=== PATIENT | female | born 1950 | race Caucasian/White ===

== ENCOUNTER → 2017-11-15 | Outpatient (CLI) | payer MEDICARE ==
[~2017-11-15] MED LIST: ALBU90OI61; AMIT50 PO; ASCO500 PO; DULO60; Ferrous Sulfat325 M2 GT; HYDMETSO BOTHEYES; Icaps Areds Fo1 EACH PO; LOSHYD100 PO; METF500 PO; METO25ER PO; MOTION RELIEF25 MG; NAPR500 PO; Omeprazole20 M1; TRAM50 PO; VITAMIN D35000 UNI1 PO; Vitamin B Comple1 EA PO; ZYRTEC10 M2 PO
[2017-11-15 18:14] LABS: BASOPHILS ABSOLUTE AUTO 0.02 K/mm3 (0.00-0.23); BASOPHILS PERCENT AUTO 0 % (0-2); EOSINOPHILS ABSOLUTE AUTO 0.12 K/mm3 (0.00-0.68); EOSINOPHILS PERCENT AUTO 2 % (0-6); Hematocrit 39.7 % (33.0-51.0); Hemoglobin 13.5 g/dL (11.5-16.0); IMMATURE GRAN ABSOLUTE AUTO 0.01 K/mm3 (0.00-0.10); IMMATURE GRAN PERCENT AUTO 0 % (0-1); LYMPHOCYTES ABSOLUTE AUTO 2.32 K/mm3 (0.84-5.20); LYMPHOCYTES PERCENT AUTO 35 % (21-46); MONOCYTES ABSOLUTE AUTO 0.69 K/mm3 (0.16-1.47); MONOCYTES PERCENT AUTO 11 % (4-13); Mean Corpuscular HGB 30.6 pg (26.0-34.0); Mean Corpuscular Volume 90 fL (80-100); Mean Platelet Volume 10.3 fL (9.1-12.4); NEUTROPHILS ABSOLUTE AUTO 3.43 K/mm3 (1.96-9.15); NEUTROPHILS PERCENT AUTO 52 % (41-73); Platelet Count 338 K/mm3 (150-400); RDW Coefficient Variation 12.7 % (11.7-14.2); RDW Standard Deviation 41.9 fL (35.1-46.3); Red Blood Cell Count 4.41 M/mm3 (3.80-5.20); White Blood Cell Count 6.59 K/mm3 (4.00-11.30)
[2017-11-15 19:11] LABS: Alanine Aminotransfer (ALT/SGP 99 U/L (12-78); Albumin, Blood 4.2 g/dL (3.4-5.0); Albumin/Globulin Ratio 1.2 (0.8-1.8); Alk Phos 118 U/L (50-136); Anion Gap 8 mmol/L (6-16); Aspartate Aminotrans (AST/SGOT 46 U/L (12-37); Bilirubin, Total 0.3 mg/dL (0.1-1.0); Blood Urea Nitrogen 18 mg/dL (8-24); Bun/Creatinine Ratio 30.7 (12.0-20.0); CO2, Blood 27 mmol/L (21-32); Calcium, Blood 9.2 mg/dL (8.5-10.1); Chloride, Blood 105 mmol/L (98-108); Creatinine, Blood 0.59 mg/dL (0.40-1.00); Globulin, Blood 3.6 g/dL (2.2-4.0); Glomerular Filtration Rate >60 (60-); Glucose, Blood 109 mg/dL (70-99); Potassium, Blood 3.8 mmol/L (3.5-5.5); Sodium, Blood 140 mmol/L (136-145); Total Protein, Blood 7.8 g/dL (6.4-8.2)
[2017-11-15 19:14] LABS: Percent Saturation 22.2 % (15.0-50.0)
== END ==
LOC: LAB 17:52 → LAB SHORT 17:52
PROVIDERS: Nurse Practitioner Adult Health
DX: E11.9 Type 2 diabetes mellitus without complications (principal); D50.9 Iron deficiency anemia, unspecified; F32.9 Major depressive disorder, single episode, unspecified; I10 Essential (primary) hypertension; J45.909 Unspecified asthma, uncomplicated; Z68.44 Body mass index [BMI] 60.0-69.9, adult
CPT/HCPCS: 80053; 82043; 82728; 83540; 83550; 85025

== ENCOUNTER 2020-03-08 06:17 | Day surgery (SDC) | payer MEDICARE ==
[~2020-03-08] VITALS: Ht 167.6 cm; Wt 111.9 kg
[~2020-03-08 06:17] MED LIST changes: +ACETAMINOPHEN500 MG; +CYCL10 PO; +DULO60 PO; +LOSARTAN-HCTZ1 EAC5 PO; +Lopressor 25 mg25 MG PO; +MECL25; +METF500C PO; +OMEP20ER; +Ocuvite Preser1 EACH PO; +PROAIR RESPICL90 MCG INH; +Ranitidine HCl150 M1 PO; +VITAMIN B125000 MC1 PO; +VITAMIN D325 MC3 PO; +Voltaren100 GM
[2020-03-08] MEDS ORDERED: ATOR20 PO (07:17)
--- NOTE | 2020-03-08 07:43 | NUR ---
03/08/20 0742 Kellie Abad COMPLET[address] DR[address] RIOS PRIOR TO SURGERY START.
--- NOTE | 2020-03-09 11:03 | NUR ---
03/09/20 1103 CHRISSIE PORTER PT NOT GIVEN SLING. PT STATED HE HAD ONE AT HOME.
== END 2020-03-08 08:37 | disposition home or self-care (01) ==
LOC: ORSCSDS 06:17
PROVIDERS: Orthopaedic Surgery
PROC: 01N50ZZ Release Median Nerve, Open Approach (ICD-10-PCS; principal; 2020-03-08 07:30)
PROC: 0LN80ZZ Release Left Hand Tendon, Open Approach (ICD-10-PCS; principal; 2020-03-08 07:30)
DX: G56.02 Carpal tunnel syndrome, left upper limb (principal); M65.332 Trigger finger, left middle finger; I10 Essential (primary) hypertension; I25.10 Atherosclerotic heart disease of native coronary artery without angina pectoris; E78.5 Hyperlipidemia, unspecified; J44.9 Chronic obstructive pulmonary disease, unspecified; G47.33 Obstructive sleep apnea (adult) (pediatric); E11.9 Type 2 diabetes mellitus without complications; E66.01 Morbid (severe) obesity due to excess calories; Z68.41 Body mass index [BMI] 40.0-44.9, adult; Z87.891 Personal history of nicotine dependence; Z79.84 Long term (current) use of oral hypoglycemic drugs; Z79.899 Other long term (current) drug therapy; Z79.82 Long term (current) use of aspirin
CPT/HCPCS: 82947; J0690; J1100; J1885; J2250; J3010; J7120

== ENCOUNTER 2020-09-16 06:15 | Day surgery (SDC) | payer MEDICARE ==
[~2020-09-16] VITALS: Ht 167.6 cm; Wt 115.3 kg
[~2020-09-16 06:15] MED LIST changes: +ATOR20 PO; +Aspirin EC81 MG PO; +MECL25 PO
--- NOTE | 2020-09-16 06:42 | NUR ---
09/16/20 0642 Yareli Sparks TETRACAINE DROP PLACED AT [address] ORDERS. PLEDGET PLACED AT [address] ORDERS.
== END 2020-09-16 08:09 | disposition home or self-care (01) ==
LOC: ORSCSDS 06:15
PROVIDERS: Ophthalmology
PROC: 08RJ3JZ Replacement of Right Lens with Synthetic Substitute, Percutaneous Approach (ICD-10-PCS; principal; 2020-09-16 07:30)
DX: H25.11 Age-related nuclear cataract, right eye (principal); I10 Essential (primary) hypertension; E11.9 Type 2 diabetes mellitus without complications; Z87.891 Personal history of nicotine dependence; E66.01 Morbid (severe) obesity due to excess calories; Z68.41 Body mass index [BMI] 40.0-44.9, adult; Z79.84 Long term (current) use of oral hypoglycemic drugs; Z79.899 Other long term (current) drug therapy; Z79.82 Long term (current) use of aspirin
CPT/HCPCS: 82947; J2001; J2250; J3010; J3301; J7040; V2632

== ENCOUNTER 2022-07-25 05:52 | Day surgery (SDC) | payer MEDICARE ==
[2022-07-25] VITALS (15 sets, daily range): BP systolic 118–171; BP diastolic 55–75
[~2022-07-25] VITALS: Ht 167.6 cm; Wt 114.9 kg
[~2022-07-25 05:52] MED LIST changes: -ACETAMINOPHEN500 MG; +ACETAMINOPHEN500 MG PO; +ESCI10 PO; +GLIP5 PO; +HYDCHL25 PO; +HYDRA25 PO; +LOSA50 PO; +LYRICA PO; -OMEP20ER; +OMEP20ER PO
--- NOTE | 2022-07-25 06:51 | NUR ---
History, Chart, Medications and Allergies reviewed before start of procedure. Patient confirms NPO status and agrees with scheduled surgery. Knee high azalia hose and calf PAS applied to BLE per order.
--- NOTE | 2022-07-25 18:15 | NUR ---
Pt. is resting in her recliner but responds whe I enter the room. Pt. is pleasant and I facilitated a life review. Considered matters of laxmi and belief, and rapport was established. Pt. displayed a wonderful sense of humor. Pt. display evidence of engagement and focus. Prayed with Pt. Pt. verbalized gratitude for the spiritual care visit.
--- NOTE | 2022-07-25 18:38 | NUR ---
SHIFT SUMMARY PT HAS DONE WELL POST OP. INITIALLY STRUGGLED w/ PAIN BUT FEELS BETTER THIS AFTERNOON. EATING, DRINKING, VOIDING WELL.
[2022-07-26 00:06] VITALS: BP 151/66
[2022-07-26 04:23] VITALS: BP 139/58
[2022-07-26 04:23] LABS: Hematocrit 28.3 % (33.0-51.0); Mean Corpuscular HGB 27.3 pg (26.0-34.0); Mean Corpuscular HGB Conc 31.8 g/dL (31.5-36.5); Mean Corpuscular Volume 86 fL (80-100); Platelet Count 276 K/mm3 (150-400); RDW Coefficient Variation 14.6 % (11.7-14.2); RDW Standard Deviation 45.4 fL (35.1-46.3); White Blood Cell Count 10.05 K/mm3 (4.00-11.30)
--- NOTE | 2022-07-26 04:34 | NUR ---
SHIFT SUMMARY POD1 LEFT TOTAL HIP. DRESSING IS C/D/I, SENSATION AND CIRCULATION REMAINS INTACT. VSS. PT SLEPT WELL T/O THE NIGHT. PAIN CONTROLLED WITH OXY AND SCHEDULED. VOIDING W/O DIFFICULTY, TOLLERATING PO INTAKE. PLAN FOR PT WORK WITH THERAPY AND D/C HOME. THE PATIENT IS CURRENTLY SLEEPING, IN NO DISTRESS, CALL LIGHT IN REACH.
[2022-07-26 04:40] LABS: Calcium, Blood 8.9 mg/dL (8.5-10.1); Creatinine, Blood 0.57 mg/dL (0.40-1.00); Potassium, Blood 3.6 mmol/L (3.5-5.5)
[2022-07-26 05:22] LABS: BAND PERCENT MAN 2 % (0-8); BASOPHILS PERCENT MAN 0 % (0-2); EOSINOPHILS PERCENT MAN 2 % (0-6); LYMPHOCYTES % ATYPICAL MANUAL 3 % (0-0); LYMPHOCYTES ABSOLUTE MAN 2.61 K/mm3 (0.84-5.20); LYMPHOCYTES PERCENT MAN 23 % (21-46); MONOCYTES PERCENT MAN 3 % (4-13); MYELOCYTE PERCENT MAN 1 % (0-0); NEUTROPHILS ABSOLUTE MAN 6.83 K/mm3 (1.96-9.15); SEG NEUTROPHILS PERCENT MAN 66 % (41-73); TOTAL CELLS COUNTED 100
[2022-07-26 06:59] VITALS: BP 139/51
[2022-07-26] MEDS ORDERED: ASPI81CH PO (09:02)
[2022-07-26] MEDS ORDERED: Percocet 5-3251 EACH PO (09:03)
--- NOTE | 2022-07-26 09:28 | NUR ---
DISCHARGE NOTE: PATIENT WAS EDUCATED ON DISCHARGE INSTRUCTIONS. SHE VERBALIZED UNDERSTANDING OF INSTRUCTIONS AND HAD NO FURTHER QUESTIONS AT THIS TIME. HARD PERSCRIPTIONS WERE PLACED IN INSTRUCTIONS FOLDER. PAIN IS MANAGED WITH ORAL PAIN MEDICATIONS. HER LEFT HIP HAS AN AQUACEL THAT IS C/D/I. DENIES NUMBNESS OR TINGLING AND CAN MOVE ALL EXTREMITIES. SHE IS TOLERATING PO INTAKE AND IS VOIDING. SHE IS SITTING UP IN THE RECLINER CHAIR WITH CALL LIGHT IN REACH. SHE IS CALLING HER RIDE TO COME PICK HER UP AT THIS TIME.
--- NOTE | 2022-07-26 10:19 | NUR ---
PATIENT IS BEING WHEELCHAIRED DOWN TO HER RIDE TO TAKE HER HOME. PATIENT IS DRESSED AND HAS PERSONAL ITEMS IN THE ROOM GATHERED.
== END 2022-07-26 10:29 | disposition home or self-care (01) ==
LOC: ORSCMMR 05:52 → ORD 07:30 → ORSCMMR 07:30 → ORD 09:15 → ORSCMMR 09:15 → SURS 10:16 → ORSCMMR 07-26 10:29
PROVIDERS: Orthopaedic Surgery
PROC: 0SRB0JZ Replacement of Left Hip Joint with Synthetic Substitute, Open Approach (ICD-10-PCS; principal; 2022-07-25 07:30)
DX: M16.12 Unilateral primary osteoarthritis, left hip (principal); E11.9 Type 2 diabetes mellitus without complications; I10 Essential (primary) hypertension; E78.5 Hyperlipidemia, unspecified; Z79.84 Long term (current) use of oral hypoglycemic drugs; Z79.4 Long term (current) use of insulin; Z79.899 Other long term (current) drug therapy; E66.01 Morbid (severe) obesity due to excess calories; Z68.41 Body mass index [BMI] 40.0-44.9, adult
CPT/HCPCS: 27130; 0055T; 36415; 72170; 80048; 82947; 85025; 97110; 97116; 97162; A9270; C1776; J0171; J0690; J0735; J1100; J1170; J1815; J1885; J2250; J2405; J2704; J2795; J3010; J7120

== ENCOUNTER → 2023-03-12 | Outpatient (CLI) | payer MEDICARE ==
[~2023-03-12] MED LIST changes: +ASPI81CH PO; +Percocet 5-3251 EACH PO
[2023-03-12 19:31] LABS: BASOPHILS ABSOLUTE AUTO 0.04 K/mm3 (0.00-0.23); BASOPHILS PERCENT AUTO 1 % (0-2); EOSINOPHILS ABSOLUTE AUTO 0.28 K/mm3 (0.00-0.68); EOSINOPHILS PERCENT AUTO 4 % (0-6); Hematocrit 37.4 % (33.0-51.0); Hemoglobin 11.7 g/dL (11.5-16.0); IMMATURE GRAN ABSOLUTE AUTO 0.01 K/mm3 (0.00-0.10); IMMATURE GRAN PERCENT AUTO 0 % (0-1); LYMPHOCYTES ABSOLUTE AUTO 2.51 K/mm3 (0.84-5.20); LYMPHOCYTES PERCENT AUTO 36 % (21-46); MONOCYTES ABSOLUTE AUTO 0.59 K/mm3 (0.16-1.47); MONOCYTES PERCENT AUTO 9 % (4-13); Mean Corpuscular HGB 24.9 pg (26.0-34.0); Mean Corpuscular HGB Conc 31.3 g/dL (31.5-36.5); Mean Corpuscular Volume 80 fL (80-100); Mean Platelet Volume 10.4 fL (9.1-12.4); NEUTROPHILS ABSOLUTE AUTO 3.48 K/mm3 (1.96-9.15); NEUTROPHILS PERCENT AUTO 50 % (41-73); Platelet Count 359 K/mm3 (150-400); RDW Coefficient Variation 18.1 % (11.7-14.2); RDW Standard Deviation 52.6 fL (35.1-46.3); Red Blood Cell Count 4.69 M/mm3 (3.80-5.20); White Blood Cell Count 6.91 K/mm3 (4.00-11.30)
[2023-03-12 20:47] LABS: Bun/Creatinine Ratio 28.8 (12.0-20.0); Calcium, Blood 9.1 mg/dL (8.5-10.1); Creatinine, Blood 0.56 mg/dL (0.40-1.00); Potassium, Blood 3.5 mmol/L (3.5-5.5)
[2023-03-16 08:12] LABS: HEMOGLOBIN A1C 6.8 % (4.8-5.6)
== END ==
LOC: LAB 18:51 → LAB SHORT 18:51
PROVIDERS: Nurse Practitioner Family
DX: E11.40 Type 2 diabetes mellitus with diabetic neuropathy, unspecified (principal); D64.9 Anemia, unspecified
CPT/HCPCS: 80048; 83036; 85025

== ENCOUNTER → 2023-12-13 | Outpatient (CLI) | payer MEDICARE ==
[2023-12-13 17:58] LABS: Creatinine, Urine Random 35.2 mg/dL (27.00-270.00)
[2023-12-13 18:01] LABS: Microalb/Creat Ratio UR, Rand 45.454 mg/g (0.000-30.000)
== END ==
LOC: LAB 15:45 → LAB SHORT 15:45
PROVIDERS: Nurse Practitioner Family
DX: E11.40 Type 2 diabetes mellitus with diabetic neuropathy, unspecified (principal)
CPT/HCPCS: 82043; 82570

== ENCOUNTER 2024-02-19 11:17 | Day surgery (SDC) | payer MEDICARE ==
[~2024-02-19] VITALS: Ht 167.6 cm; Wt 109.5 kg
[2024-02-19] VITALS (10 sets, daily range): BP systolic 112–185; BP diastolic 46–86
[~2024-02-19 11:17] MED LIST changes: +Acetaminophen 500 MG Tab PO SCH; +CeFAZolin Sodium 2,000 MG in NS 100 ML IV SCH; +Chlorhexidine Mouth Care 15 ML UDC MT SCH; +JARDIANCE10 MG PO; +Lactated Ringer's 1,000 ML IV SCH; +OxyCODONE HCL 10 MG TABCR PO SCH; +Ropivacaine 0.5% HCl/Pf 123.125 MG,EPINEPHrine HCL 0.25 MG,Ketorolac Tromethamine 15 MG... INFIL SCH; +Tranexamic Acid 1,000 MG in NS 100 ML IV SCH
[2024-02-19] MEDS ORDERED: Ondansetron HCl 2 MG / ML 2ML Vial IV PRN (12:30)
[2024-02-19] MEDS ORDERED: Bisacodyl 10 MG Supp PR PRN (12:30)
[2024-02-19] MEDS ORDERED: Promethazine HCl 25 MG Tab PO PRN (12:30)
[2024-02-19] MEDS ORDERED: OxyCODONE HCL 5 MG TAB PO PRN ×2 (12:35)
[2024-02-19] MEDS ORDERED: HYDROmorphone HCl/Pf 1MG SYR IV PRN (12:35)
[2024-02-19] MEDS ORDERED: Metoclopramide HCl 5MG / ML 2ML Vial IV PRN (12:35)
[2024-02-19] MEDS ORDERED: Magnesium Hydroxide Conc 10 ML UDC PO PRN (12:35)
[2024-02-19] MEDS ORDERED: FLU VACC TS2024-25(6MOS UP)/PF 45 MCG/0.5 ML SYRINGE IM SCH (12:35)
[2024-02-19] MEDS ORDERED: DiphenhydrAMINE HCL 25 MG Cap PO PRN (12:40)
[2024-02-19] MEDS ORDERED: Lactated Ringer's 1,000 ML IV SCH (12:40)
--- NOTE | 2024-02-19 12:46 | NUR ---
History, Chart, Medications and Allergies reviewed before start of procedure. Lungs clear T/O to Auscultation. Patient confirms NPO status and agrees with scheduled surgery. Patient reports completing Chlorhexadine shower X2 prior to admission to hospital.
[2024-02-19] MEDS ORDERED: propofoL 100 ML IV ONE (14:27)
[2024-02-19] MEDS ORDERED: Phenylephrine HCl 10mg/ml 1 ml Vial ONE (15:33)
[2024-02-19] MEDS ORDERED: Midazolam HCl 1MG / ML 2ML Vial ONE (15:33)
[2024-02-19] MEDS ORDERED: propofoL 20 ML IV ONE (15:56)
[2024-02-19] MEDS ORDERED: Acetaminophen 500 MG Tab PO SCH (16:00)
[2024-02-19] MEDS ORDERED: Insulin Regular 100 UNIT/ML 10ML Vial SC SCH (16:30)
--- NOTE | 2024-02-19 16:45 | NUR ---
ARRIVAL TO UNIT AFTER RECEIVING REPORT FROM [employer] SOFTWARE ENGINEER, PATIENT TRANSFERRED TO UNIT AT APPROX 1630. PATIENT ALERT AND ORIENTED X4. COMMUNICATING NEEDS EFFECTIVELY. S/P R TKA WITH SPINAL - DENIES SENSATION TO BLE, UNABLE TO WIGGLE TOES. PPP. CAP REFILL <3 SECONDS. DENIES PAIN. AQUACEL AND ASTRID WRAP DRESSING - NO SHADOWING NOTED. COOLING DEVICE IN PLACE. VSS. TOLERATING ROOM AIR, SATs >90%. BLADDER SCAN PRIOR TO TRANSFER SHOWING 263ML PER PER[employer] SOFTWARE ENGINEER. TOLERATING SMALL BITES OF JELLO AND SIPS OF WATER - IVF INFUSING PER EMAR. CALL LIGHT IN REACH.
[2024-02-19] MEDS ORDERED: Ketorolac Tromethamine 15mg Vial IV SCH (18:00)
--- NOTE | 2024-02-19 18:15 | NUR ---
SHIFT SUMMARY NO ACUTE CHANGES SINCE ARRIVAL TO UNIT. VSS REMAIN STABLE. S/P R TKA - DRESSING REMAINS C/D/I. COOLING DEVICE IN PLACE. TOLERATING PO INTAKE. IS REPORTING SOME SENSATION TO BLE, ABLE TO WIGGLE TOES. HAS NOT VOIDED POST OP. DENIES PAIN. COOLING DEVICE IN PLACE. CALL LIGHT IN REACH. WILL CONTINUE TO MONITOR AND REPORT TO ONCOMING RN.
[2024-02-19] MEDS ORDERED: Docusate Sodium 100 MG Cap PO SCH (21:00)
[2024-02-19] MEDS ORDERED: CeFAZolin Sodium 2,000 MG in NS 100 ML IV SCH (22:00)
[2024-02-20 00:11] VITALS: BP 185/74
[2024-02-20] MEDS ORDERED: HydrALAZINE HCl 25 MG Tab PO PRN (00:45)
[2024-02-20 04:39] VITALS: BP 175/77
[2024-02-20 05:21] LABS: BASOPHILS ABSOLUTE AUTO 0.02 K/mm3 (0.00-0.23); BASOPHILS PERCENT AUTO 0 % (0-2); EOSINOPHILS PERCENT AUTO 1 % (0-6); Hematocrit 34.1 % (33.0-51.0); Hemoglobin 11.9 g/dL (11.5-16.0); IMMATURE GRAN ABSOLUTE AUTO 0.02 K/mm3 (0.00-0.10); IMMATURE GRAN PERCENT AUTO 0 % (0-1); LYMPHOCYTES ABSOLUTE AUTO 1.85 K/mm3 (0.84-5.20); LYMPHOCYTES PERCENT AUTO 21 % (21-46); MONOCYTES ABSOLUTE AUTO 0.89 K/mm3 (0.16-1.47); MONOCYTES PERCENT AUTO 10 % (4-13); Mean Corpuscular HGB Conc 34.9 g/dL (31.5-36.5); Mean Corpuscular Volume 89 fL (80-100); Mean Platelet Volume 9.9 fL (9.1-12.4); NEUTROPHILS ABSOLUTE AUTO 5.84 K/mm3 (1.96-9.15); NEUTROPHILS PERCENT AUTO 67 % (41-73); Platelet Count 241 K/mm3 (150-400); RDW Coefficient Variation 13.2 % (11.7-14.2); RDW Standard Deviation 43.1 fL (35.1-46.3); Red Blood Cell Count 3.84 M/mm3 (3.80-5.20); White Blood Cell Count 8.72 K/mm3 (4.00-11.30)
[2024-02-20 05:44] LABS: Bun/Creatinine Ratio 26.9 (12.0-20.0); Calcium, Blood 8.8 mg/dL (8.5-10.1); Creatinine, Blood 0.6 mg/dL (0.40-1.00); Potassium, Blood 2.9 mmol/L (3.5-5.5)
--- NOTE | 2024-02-20 06:43 | NUR ---
SHIFT SUMMARY POD 1 R TKA. NO ACUTE CHANGES OVERNIGHT. VSS. TOLERATING ORALS. AMBULATES USING FWW c GB & SBA. VOIDING. PT REPORTS PAIN TOLERABLE, POLAR PACK IN USE, MEDICATED PER EMAR. ASTRID WRAP & AQUACEL C/D/I. ANTICIPATED TO WORK c PHYSCIAL THERAPY THEN DISCHARGE HOME LATER TODAY. PT DRESSED & RESTING IN CHAIR. CALL LIGHT IN REACH, WILL REPORT TO DAY RN.
[2024-02-20 08:07] VITALS: BP 152/60
[2024-02-20] MEDS ORDERED: HydroCHLOROthiazide 25 mg Tab PO SCH (09:00)
[2024-02-20] MEDS ORDERED: Empagliflozin 10 MG TAB PO SCH (09:00)
[2024-02-20] MEDS ORDERED: Aspirin 81 MG Chew PO SCH (09:00)
[2024-02-20 12:08] VITALS: BP 198/85
[2024-02-20 12:50] VITALS: BP 152/70
--- NOTE | 2024-02-20 14:42 | NUR ---
DISCHARGE NOTE PT IS AMBULATING 1 ASST W/ FWW AND GB, VOIDING, TOLERATING REG DIET. PT'S PAIN IS TOLERABLE W/ SCHEDULED AND PRN PAIN MEDS. VSS, PT HYPERTENSIVE AT BASELINE. DRESSING C/D/I, PT SENT HOME W/ DRESSING CHANGES. CIRCULATION TO R LEG INTACT. DISCHARGE INSTRUCTIONS REVIEWED W/ PT, COPY GIVEN. PT DC'D TO PRIVATE RIDE HOME VIA W/C IN STABLE CONDITION W/ BELONGINGS.
[2024-02-20] MEDS ORDERED: Metoprolol Tartrate 25 MG Tab PO SCH (21:00)
[2024-02-20] MEDS ORDERED: Losartan Potassium 50 MG Tab PO SCH (21:00)
== END 2024-02-20 13:20 | disposition home or self-care (01) ==
LOC: ORSCMMR 11:17 → ORD 12:30 → ORSCMMR 12:30 → SURS 16:29 → ORSCMMR 02-20 13:20
PROVIDERS: Orthopaedic Surgery
PROC: 0SRC0JA Replacement of Right Knee Joint with Synthetic Substitute, Uncemented, Open Approach (ICD-10-PCS; principal; 2024-02-19 12:30)
DX: M17.11 Unilateral primary osteoarthritis, right knee (principal); E11.9 Type 2 diabetes mellitus without complications; K21.9 Gastro-esophageal reflux disease without esophagitis; I10 Essential (primary) hypertension; E78.5 Hyperlipidemia, unspecified; Z96.642 Presence of left artificial hip joint; Z79.84 Long term (current) use of oral hypoglycemic drugs; Z79.899 Other long term (current) drug therapy
CPT/HCPCS: 36415; 73560-RT; 80048; 82947; 85025; 94660; 94762; 97110; 97116; 97161; 97530; A9270; C1776; J0171; J0690; J0735; J1885; J2250; J2371; J2704; J2795; J7120